=== PATIENT | female | born 1960 ===

== ENCOUNTER 2018-10-02 10:39 | Emergency (ER) | payer OTHER ==
--- NOTE | 2018-10-02 10:49 | ED Physician Documentation ---
General Adult - HISTORIAN Historian: patient - HPI Stated Complaint: mental status changes Chief Complaint: Altered Mental Status Onset: hours (1) Timing: still present Severity: moderate Further Comments: yes (Per co workers with pt she was complaining of a headache around 0900 which she did take Tylenol for just prior to 0900. She was then noted to have increased difficulty with normal tasks at work and then she was not speaking normally so they co workers did bring her to the ER. She is noting a headache with a head shake. She is appropriate with actions she is not speaking words with meaning. She was able to move from wheelchair to bed with no issue. No focal weakness) Last known Well Code/Unknown Code: Unknown - ROS CONST: no problems EYES/ENT: problems with vision CVS/RESP: none - PAST HX Past History: none, other (migraines ) Immunizations: UTD Allergies/Adverse Reactions: Allergies Allergy/AdvReac Type Severity Reaction Status Date / Time bupropion HCl Allergy Hives Verified 10/02/18 12:20 [From Wellbutrin] citalopram hydrobromide Allergy Hives Verified 10/02/18 12:20 [From Celexa] varenicline [From Chantix] Allergy Verified 10/02/18 12:20 Home Medications: Ambulatory Orders Medication Instructions Recorded NK 10/02/18 - SOCIAL HX Smoking History: non-smoker Alcohol Use: sober Drug Use: none - FAMILY HX Family History: No - VITAL SIGNS Vital Signs: Vital Signs Temp Pulse Resp BP Pulse Ox 111/69 07/31/18 09:55 - REVIEWED ASSESSMENTS Vitals Reviewed: Yes Progress - Progress Progress: 1055: Call for possible transfer to [place] - DG 1101: Discussed with Dr Brown Neurologist- he reports this is not a stroke event. Migraine event DG 1155: Discussed results and plan. She states she has no pain currently and did not need meds for headache DG 1212: with discussion with nurse at discharge her headache is 5/10 and [facility] [place] [facility] [place]Radiology - Radiology Radiology Impressions: Examination: CT head without contrast History: STROKE PROTOCOL; HEADACHE STARTING THIS MORNING Comparison exam: None available Technique: Noncontrast head CT protocol. Findings: Ventricles and sulci are consistent for patient age. Cerebrocerebellar parenchyma demonstrates periventricular low attenuation consistent with small vessel disease. No evidence for parenchymal hemorrhage. No evidence for mass or mass effect. No midline shift. No extra axial fluid collections. Partial visualization of the paranasal sinuses demonstrates scattered mucous thickening. Mastoid air cells, orbits, skull and scalp without gross irregularity. Impression: Age related changes. No acute parenchymal process. No hemorrhage. Electronically signed on Oct 02, 2018 11:04:40 AM CDT by: Ricardo Davies Examination: CT head without contrast History: STROKE PROTOCOL; HEADACHE STARTING THIS MORNING Comparison exam: None available Technique: Noncontrast head CT protocol. Findings: Ventricles and sulci are consistent for patient age. Cerebrocerebellar parenchyma demonstrates periventricular low attenuation consistent with small vessel disease. No evidence for parenchymal hemorrhage. No evidence for mass or mass effect. No midline shift. No extra axial fluid collections. Partial visualization of the paranasal sinuses demonstrates scattered mucous thickening. Mastoid air cells, orbits, skull and scalp without gross irregularity. Impression: Age related changes. No acute parenchymal process. No hemorrhage. Electronically signed on Oct 02, 2018 11:04:32 AM CDT by: Ricardo Davies - Orders Orders: ED Orders Category Date Time Status CT BRAIN W/O CONTRAST Routine Exams 10/02/18 Ordered General Adult Physical Exam - PHYSICAL EXAM GENERAL APPEARANCE: mild distress EENT: eye inspection normal, ENT inspection normal, no signs of dehydration, ADONAY NECK: normal inspection RESPIRATORY: no resp distress, chest non-tender, breath sounds normal CVS: reg rate & rhythm, heart sounds normal, equal pulses, no murmur ABDOMEN: soft, normal bowel sounds, no distension, non-tender BACK: normal inspection, no CVA tenderness SKIN: warm/dry, normal color EXTREMITIES: non-tender, normal range of motion, no evidence of injury NEURO: speech/cognition abnml, other (1101: speech has normalized no further abnormalities ) Discharge Clincal Impression: Migraine Qualifiers: Migraine type: unspecified Status migrainosus presence: with status migrainosus Intractability: not intractable Qualified Code(s): G43.901 - Migraine, unspecified, not intractable, with status migrainosus Referrals: Daisy Calhoun MD [Primary Care Provider] - 2 Days Comments: 1. Follow up with PCP 2. Increase fluids 3. OTC meds as directed as needed for pain 4. Return to ER for any increasing concerns Condition: Stable Disposition: 01 HOME, SELF-CARE Decision to Admit: NO Date of Decison to Admit: 10/02/18 Decision Time: 11:58
[2018-10-02 11:18] LABS: BASOPHILS % 0.7 % (0.0-1.5)
--- NOTE | 2018-10-02 11:32 | Diagnostic Imaging Report ---
FABIOLA HILL [facility] [address] [facility] [address] [place], [place]. [address] Report Submission Date: Oct 02, 2018 11:04:32 AM CDT Patient Study Name: SHANNON WELLS Date: Oct 02, 2018 10:39:00 AM CDT Modality Type: CT Gender: F Description: BRAIN W/O : 64 Institution: [facility] Physician: FABIOLA HILL Examination: CT head without contrast History: STROKE PROTOCOL; HEADACHE STARTING THIS MORNING Comparison exam: None available Technique: Noncontrast head CT protocol. Findings: Ventricles and sulci are consistent for patient age. Cerebrocerebellar parenchyma demonstrates periventricular low attenuation consistent with small vessel disease. No evidence for parenchymal hemorrhage. No evidence for mass or mass effect. No midline shift. No extra axial fluid collections. Partial visualization of the paranasal sinuses demonstrates scattered mucous thickening. Mastoid air cells, orbits, skull and scalp without gross irregularity. Impression: Age related changes. No acute parenchymal process. No hemorrhage. Electronically signed on Oct 02, 2018 11:04:32 AM CDT by: Ricardo Davies [facility]ITALDelon
[2018-10-02 11:33] LABS: eGFR (Non-African) > 60
[2018-10-02] MEDS: KETOROLAC TROMETHAMINE 60 MG/2 ML VIAL IM ONE (12:18)
[2018-10-02 12:39] LABS: CANNABINOIDS NEGATIVE ng/mL (< 50); METHYLENEDIOXYMETHAMPHETAMINE NEGATIVE ng/mL (<500)
[2018-10-02 12:46] VITALS: BP 121/70
[2018-10-02 12:47] LABS: APPEARANCE,URINE CLEAR (CLEAR); COLOR,URINE YELLOW (YELLOW); OCCULT BLOOD,URINE TRACE-INTACT (NEGATIVE)
[2018-10-02 12:48] LABS: UROBILINOGEN URINE 0.2 Eu (0.2-1.0)
== END 2018-10-02 12:42 | disposition home or self-care (01) ==
LOC: ED 10:39
DX: G43.909 Migraine, unspecified, not intractable, without status migrainosus (principal)
CPT/HCPCS: 70450; 80048; 80377; 81002; 85025; 96372; 99283; 99284; J1885; G0481; S1016